=== PATIENT | female | born 1930 | race Caucasian/White ===

== ENCOUNTER 2017-08-19 09:07 | Inpatient (IN) | payer MEDICARE ==
[2017-08-19] MEDS ORDERED: SODIUM CHLORIDE 0.9% FLUSH 10 ML FLUSH IVF (10:00)
[2017-08-19] MEDS: LOSARTAN 25 MG TAB PO (10:15)
[2017-08-19 10:42] LABS: AUTOMATED NEUTROPHIL # 5.6 TH/MM3 (1.8-7.7); BASOPHIL # 0.1 TH/MM3 (0-0.2); BASOPHIL % 1.2 % (0.0-2.0); EOSINOPHIL # 0.3 TH/MM3 (0-0.4); EOSINOPHIL % 3.9 % (0.0-4.0); HEMATOCRIT 34.3 % (35.0-46.0); HEMO FLAGS DIFF FINAL; HEMOGLOBIN 11.7 GM/DL (11.6-15.3); LYMPH % 10.3 % (9.0-44.0); LYMPHOCYTE # 0.8 TH/MM3 (1.0-4.8); MEAN CELL VOLUME 95.1 FL (80.0-100.0); MEAN CORPUSCULAR HEMOGLOBIN 32.4 PG (27.0-34.0); MEAN PLATELET VOLUME 8.1 FL (7.0-11.0); MONO % 9.5 % (0.0-8.0); MONOCYTE # 0.7 TH/MM3 (0-0.9); NEUT % 75.1 % (16.0-70.0); PLATELET COUNT 262 TH/MM3 (150-450); RED CELL DISTRIBUTION WIDTH 12.9 % (11.6-17.2); WHITE BLOOD COUNT 7.4 TH/MM3 (4.0-11.0)
[2017-08-19 10:52] LABS: APTT (PATIENT) 29.8 SEC (24.3-30.1); PROTHROMBIN TIME - PATIENT 10.4 SEC (9.8-11.6)
[2017-08-19 10:56] LABS: D-DIMER 0.89 MG/L FEU (0.00-0.50)
[2017-08-19 11:05] LABS: ALBUMIN 3.5 GM/DL (3.4-5.0); ALT (GPT) 40 U/L (10-53); ANION GAP 12 MEQ/L (5-15); AST (GOT) 41 U/L (15-37); BICARBONATE 22.3 MEQ/L (21.0-32.0); BLOOD UREA NITROGEN 20 MG/DL (7-18); CALCIUM 8.6 MG/DL (8.5-10.1); CHLORIDE 107 MEQ/L (98-107); CREATININE 0.98 MG/DL (0.50-1.00); GLOMERULAR FILTRATION RATE 53 ML/MIN (>89); GLUCOSE,RANDOM 102 MG/DL (74-106); MAGNESIUM 2.2 MG/DL (1.5-2.5); POTASSIUM 4.3 MEQ/L (3.5-5.1); SODIUM (NA) 141 MEQ/L (136-145)
[2017-08-19 11:09] LABS: ALKALINE PHOSPHATASE 109 U/L (45-117); TOTAL BILIRUBIN ADULT 1.1 MG/DL (0.2-1.0); TOTAL PROTEIN 6.9 GM/DL (6.4-8.2); TROPONIN I LESS THAN 0.02 NG/ML (0.02-0.05)
[2017-08-19 11:14] LABS: CREATINE KINASE 42 U/L (26-192)
[2017-08-19 11:18] LABS: B-TYPE NATRIURETIC PEPTIDE 474 PG/ML (0-100)
[2017-08-19] MEDS: IOHEXOL 350 MG/ML 10 ML VIAL (for RAD DIAG) IVCONTRAST (12:42)
[2017-08-19] MEDS ORDERED: SODIUM CHLORIDE 0.9% FLUSH 10 ML FLUSH IV FLUSH (14:00)
[2017-08-19] MEDS: ASPIRIN 325 MG TAB PO (15:01)
[2017-08-19] MEDS: FUROSEMIDE 40 MG/4 ML VIAL IV PUSH (15:02)
[2017-08-19] MEDS: FUROSEMIDE 40 MG/4 ML VIAL IVP (18:04)
[2017-08-19] MEDS: ATENOLOL 25 MG TAB PO (21:00)
[2017-08-19] MEDS: HEPARIN SODIUM - SQ 10,000 UNITS/ML VIAL SQ (21:51)
[2017-08-19] MEDS: POTASSIUM CHLORIDE 20 MEQ CONTROLLED RELEASE TAB PO (21:51)
[2017-08-19] MEDS: SODIUM CHLORIDE 0.9% FLUSH 10 ML FLUSH IV FLUSH (21:52)
[2017-08-20 07:35] LABS: B-TYPE NATRIURETIC PEPTIDE 433 PG/ML (0-100)
[2017-08-20 07:38] LABS: ALBUMIN 3.3 GM/DL (3.4-5.0); ALKALINE PHOSPHATASE 98 U/L (45-117); ALT (GPT) 33 U/L (10-53); ANION GAP 13 MEQ/L (5-15); AST (GOT) 31 U/L (15-37); BICARBONATE 23.5 MEQ/L (21.0-32.0); BLOOD UREA NITROGEN 18 MG/DL (7-18); CALCIUM 8.6 MG/DL (8.5-10.1); CHLORIDE 104 MEQ/L (98-107); CREATININE 0.96 MG/DL (0.50-1.00); DIRECT BILIRUBIN ADULT 0.3 MG/DL (0.0-0.2); GLOMERULAR FILTRATION RATE 55 ML/MIN (>89); GLUCOSE,RANDOM 79 MG/DL (74-106); INDIRECT BILIRUBIN 0.7 MG/DL (0.0-0.8); POTASSIUM 3.4 MEQ/L (3.5-5.1); SODIUM (NA) 140 MEQ/L (136-145); TOTAL PROTEIN 6.5 GM/DL (6.4-8.2)
[2017-08-20] MEDS: FUROSEMIDE 40 MG/4 ML VIAL IVP ×2 (08:30→17:03)
[2017-08-20] MEDS: HEPARIN SODIUM - SQ 10,000 UNITS/ML VIAL SQ (08:30)
[2017-08-20] MEDS: SODIUM CHLORIDE 0.9% FLUSH 10 ML FLUSH IV FLUSH ×2 (08:31→21:34)
[2017-08-20] MEDS: PANTOPRAZOLE SOD 20 MG DELAYED RELEASE TAB PO (08:35)
[2017-08-20] MEDS: ASPIRIN 81 MG CHEW TAB CHEW (08:35)
[2017-08-20] MEDS: POTASSIUM CHLORIDE 20 MEQ CONTROLLED RELEASE TAB PO ×2 (08:36→21:33)
[2017-08-20] MEDS: LOSARTAN 25 MG TAB PO ×2 (08:38→14:35)
[2017-08-20] MEDS: ATENOLOL 25 MG TAB PO ×2 (08:39→21:34)
[2017-08-20] MEDS ORDERED: PILL SPLITTER OTHER (14:30)
[2017-08-20] MEDS: APIXABAN 2.5 MG TABLET PO (21:33)
[2017-08-21 06:26] LABS: B-TYPE NATRIURETIC PEPTIDE 243 PG/ML (0-100)
[2017-08-21 06:29] LABS: ANION GAP 8 MEQ/L (5-15); BICARBONATE 31.6 MEQ/L (21.0-32.0); BLOOD UREA NITROGEN 25 MG/DL (7-18); CALCIUM 8.9 MG/DL (8.5-10.1); CHLORIDE 101 MEQ/L (98-107); CREATININE 1.34 MG/DL (0.50-1.00); GLOMERULAR FILTRATION RATE 37 ML/MIN (>89); GLUCOSE,RANDOM 97 MG/DL (74-106); MAGNESIUM 2.3 MG/DL (1.5-2.5); POTASSIUM 3.5 MEQ/L (3.5-5.1); SODIUM (NA) 141 MEQ/L (136-145)
[2017-08-21] MEDS: LEVOTHYROXINE SODIUM 75 MCG TAB PO (06:42)
[2017-08-21] MEDS ORDERED: LOSARTAN 25 MG TAB PO (09:00)
[2017-08-21] MEDS: PANTOPRAZOLE SOD 20 MG DELAYED RELEASE TAB PO (09:49)
[2017-08-21] MEDS: ASPIRIN 81 MG CHEW TAB CHEW (09:50)
[2017-08-21] MEDS: APIXABAN 2.5 MG TABLET PO (09:51)
[2017-08-21] MEDS: POTASSIUM CHLORIDE 20 MEQ CONTROLLED RELEASE TAB PO (09:51)
[2017-08-21] MEDS: SODIUM CHLORIDE 0.9% FLUSH 10 ML FLUSH IV FLUSH (09:52)
[2017-08-21] MEDS: amLODIPine BESYLATE 5 MG TAB PO (12:03)
[2017-08-21] MEDS: ATENOLOL 25 MG TAB PO (12:03)
[2017-08-21] MEDS ORDERED: ATENOLOL 25 MG TAB PO (21:00)
[2017-08-22] MEDS ORDERED: LOSARTAN 25 MG TAB PO (09:00)
== END 2017-08-21 12:35 | disposition home or self-care (01) | DRG 292 ==
LOC: NEPC 09:07 → NEDA 13:52 → N04A 18:40
DX: I11.0 Hypertensive heart disease with heart failure (principal); I16.1 Hypertensive emergency; I48.91 Unspecified atrial fibrillation; I50.9 Heart failure, unspecified; K21.9 Gastro-esophageal reflux disease without esophagitis; E03.9 Hypothyroidism, unspecified; E78.5 Hyperlipidemia, unspecified; M17.0 Bilateral primary osteoarthritis of knee; Z82.49 Family history of ischemic heart disease and other diseases of the circulatory system; Z66 Do not resuscitate; Z85.828 Personal history of other malignant neoplasm of skin
CPT/HCPCS: 70450; 71045; 71275; 80048; 80053; 80076; 82550; 83735; 83880; 84443; 84484; 85025; 85379; 85610; 85730; 93005; 93306; 94150; 97162-GP; 99285-25